=== PATIENT | female | born 1945 | race Caucasian/White ===

== ENCOUNTER 2021-07-09 09:54 | Outpatient (CLI) | payer MEDICARE, SELFPAY ==
--- NOTE | 2021-07-09 10:03 | MM_ITS ---
WS: [id number] BILATERAL SCREENING DIGITAL MAMMOGRAM WITH CAD HISTORY: SCREENING COMPARISON: 03/30/2019 03/01/2018 Bilateral CC and MLO views submitted. Computer aided detection analyzed. Breast composition: There are scattered areas of fibroglandular density. No suspicious masses, microc alcifications or architectural distortion. Vascular calcifications and scattered benign calcification s within each breast. MM/[id number] IMPRESSION: BI-RADS: 2-Benign FOLLOW UP: 1 Year Follow-up
== END 2021-07-09 09:55 | disposition home or self-care (01) ==
LOC: RADSHAW 10:01
PROVIDERS: PCP Internal Medicine; Visit Provider Internal Medicine
DX: Z12.31 Encounter for screening mammogram for malignant neoplasm of breast (principal)
CPT/HCPCS: 77067

== ENCOUNTER 2022-07-15 09:13 | Outpatient (CLI) | payer MEDICARE, SELFPAY ==
--- NOTE | 2022-07-15 09:20 | MM_ITS ---
WS: [id number] Bilateral screening 3D tomosynthesis digital mammogram, 07/15/2022 Clinical Data: SCREENING Comparison: 10/18/2021, 03/30/2019, 03/01/2018, 10/09/2016, 04/17/2015, 04/05/2014, 03/07/2013, 12/01/2011, 10/30, 11/18/2009, 11/16/2008, 11/11/2007, 11/16/2006. Findings: The breast parenchymal pattern shows fibroglandular tissue. No spiculated masses or clustered calcifi cations are seen. There are no secondary signs of carcinoma. There are scattered benign calcification s and vascular calcifications in both breasts. There are mole markers on the left breast. MM/[id number] Impression: 1. Negative bilateral mammogram unchanged. 2. Recommend annual screening mammograms. BIRADS: 1-Negative FOLLOW UP: 1 Year Follow-up The CAD return checker was used.
== END 2022-07-15 09:14 | disposition home or self-care (01) ==
PROVIDERS: PCP Internal Medicine; Visit Provider Internal Medicine
DX: Z12.31 Encounter for screening mammogram for malignant neoplasm of breast (principal)
CPT/HCPCS: 77063; 77067

== ENCOUNTER 2022-10-21 09:40 | Outpatient (CLI) | payer MEDICARE, SELFPAY ==
--- NOTE | 2022-10-21 09:53 | XRR_ITS ---
PROCEDURE INFORMATION: Exam: XR Right Ribs with PA Chest Exam date and time: 10/21/2022 9:58 AM Age: 77 years old Clinical indication: Pain and injury or trauma; Fall; Blunt trauma (contusions or hematomas); Chest wall pain; Right; Injury details: RT rib pain, upper to mid rib area, patient fell against wall 2 weeks ago; Additional info: Right rib pain TECHNIQUE: Imaging protocol: Radiologic exam of the Right ribs with PA chest. Views: 3 views COMPARISON: CT abdomen pelvis w con* [id number] 08/31/2017 3:05 PM FINDINGS: Lungs: Unremarkable. No consolidation. Pleural spaces: Unremarkable. No pleural effusion. No pneumothorax. Heart/Mediastinum: Unremarkable. No cardiomegaly. Bones/joints: Healed right-sided rib fractures are identified. However, there does appear to be an acute fracture at least of the 5th and 6th lateral right ribs. This is seen on the last oblique view. XR/XR ribs RT mn 3V w [id number] IMPRESSION: No pneumothorax with healed right rib fractures. The does appear to be in acute right 5th and right 6th rib fracture.
== END 2022-10-21 09:41 | disposition home or self-care (01) ==
PROVIDERS: PCP Internal Medicine; Visit Provider Nurse Practitioner Family
DX: R07.81 Pleurodynia (principal)
CPT/HCPCS: 71101

== ENCOUNTER → 2023-07-05 09:42 | Outpatient (BNVA) | payer MEDICARE, SELFPAY | PROVIDERS: PCP Internal Medicine; Visit Provider Internal Medicine Cardiovascular Disease | DX: I35.8 Other nonrheumatic aortic valve disorders (principal); I73.9 Peripheral vascular disease, unspecified; I10 Essential (primary) hypertension; E78.5 Hyperlipidemia, unspecified | CPT/HCPCS: 99214 ==

== ENCOUNTER 2023-07-28 11:31 | Outpatient (CLI) | payer MEDICARE, SELFPAY ==
--- NOTE | 2023-07-28 11:37 | MM_ITS ---
WS: [id number] BILATERAL SCREENING DIGITAL TOMOSYNTHESIS MAMMOGRAM WITH CAD HISTORY: SCREENING COMPARISON: 07/15/2022, 07/09/2021 and 03/30/2019 Bilateral CC and MLO views with tomosynthesis and synthetic mammography submitted. Computer aided det ection analyzed. Breast composition: There are scattered areas of fibroglandular density. No suspicious masses, microc alcifications or architectural distortion. There are benign scattered calcifications and vascular jocelyn cifications. Long-term stability 8 mm nodule in the anterior RIGHT breast with calcifications. IMPRESSION: MM/[id number] BI-RADS: 2-Benign FOLLOW UP: 1 Year Follow-up
== END 2023-07-28 11:32 | disposition home or self-care (01) ==
PROVIDERS: PCP Internal Medicine; Visit Provider Internal Medicine
DX: Z12.31 Encounter for screening mammogram for malignant neoplasm of breast (principal)
CPT/HCPCS: 77063; 77067

== ENCOUNTER → 2023-07-29 14:19 | Outpatient (BNVA) | payer MEDICARE, SELFPAY | PROVIDERS: PCP Internal Medicine; Referring Provider Internal Medicine; Visit Provider Internal Medicine | DX: E03.9 Hypothyroidism, unspecified; E04.1 Nontoxic single thyroid nodule | CPT/HCPCS: 36415; 84439; 84443; 99204 ==

== ENCOUNTER 2023-10-27 14:02 | Outpatient (CLI) | payer MEDICARE, SELFPAY ==
--- NOTE | 2023-10-27 | MR_ITS ---
WS: [id number] MRI ORBIT WITH AND WITHOUT CONTRAST. COMPARISON: No similar studies. Multiplanar, multisequence imaging is performed with and without contrast. MultiHance IV. There is significant artifact throughout the diffusion imaging from an unknown source. There are no s econdary findings for an acute infarct. Mild volume loss and atrophy throughout the brain. There are a few scattered areas of increased T2 signal from small vessel ischemic disease. No mass or abnormal signal located in the pontine tegmentum near the midline or lateral to the fourth ventricle. There is no mass or mass effect. The russ is negative. No infarcts. Cavernous portions of the 6th cranial ner ves are negative. No intracranial mass or abnormal enhancement. There are no vascular malformations. There is a small v enous angioma in the LEFT posterior occipital lobe near the tentorium. Normal appearance of the orbit s and globes. Optic nerves are symmetric. Rectus muscles are negative. IMPRESSION: 1. No abnormalities identified in the region of the 6th cranial nerve. No signal abnormalities or mas s effect. 2. Negative appearance of the orbits. 3. Mild atrophy and mild small vessel ischemic disease within the brain. No prior infarct.
== END 2023-10-27 14:03 | disposition home or self-care (01) ==
PROVIDERS: PCP Internal Medicine; Visit Provider Student in an Organized Health Care Education/Training Program
DX: H49.23 Sixth [abducent] nerve palsy, bilateral (principal); I67.89 Other cerebrovascular disease
CPT/HCPCS: 70543; 70553; A9577

== ENCOUNTER → 2023-11-15 12:46 | Outpatient (BNVA) | payer MEDICARE, SELFPAY | PROVIDERS: PCP Internal Medicine; Visit Provider Internal Medicine | DX: E07.9 Disorder of thyroid, unspecified (principal); E04.1 Nontoxic single thyroid nodule; E03.9 Hypothyroidism, unspecified; H54.7 Unspecified visual loss; R49.0 Dysphonia; Z79.890 Hormone replacement therapy | CPT/HCPCS: 36415; 84439; 84443; 99214 ==

== ENCOUNTER 2023-11-17 09:38 | Outpatient (CLI) | payer MEDICARE, SELFPAY ==
--- NOTE | 2023-11-17 10:00 | US_ITS ---
WS: [id number] THYROID ULTRASOUND HISTORY: Hypothyroidism COMPARISON: 04/29/2023 Right lobe: 2.1 cm x 2.3 cm x 4.4 cm (w x ap x l). Volume: 11.2 cm3. Enlarged heterogeneous gland with a few small cystic nodules throughout. There is mild increased vasc ularity but not quite as significant as on the prior study. There are no discrete masses or echogenic foci. Left lobe: 2.0 cm x 2.0 cm x 5.2 cm (w x ap x l). Volume: 10.6 cm3. Mildly enlarged thyroid. There are a few small scattered cystic areas and very mild increased vascula rity. No mass or heterogeneity noted within the RIGHT thyroid as previously described. Isthmus: 1.0 cm. IMPRESSION: 1. Moderately enlarged thyroid with increased vascularity and a few small nodules. 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 2. Vascularity is slightly decreased as compared to the prior study. 3. No suspicious nodules are identified today.
== END 2023-11-17 09:39 | disposition home or self-care (01) ==
LOC: RAD 09:38
PROVIDERS: PCP Internal Medicine; Visit Provider Internal Medicine
DX: E03.9 Hypothyroidism, unspecified (principal)
CPT/HCPCS: 76536

== ENCOUNTER → 2024-01-17 10:13 | Outpatient (BNVA) | payer MEDICARE, SELFPAY | PROVIDERS: PCP Internal Medicine; Visit Provider Internal Medicine | DX: E07.9 Disorder of thyroid, unspecified (principal); E03.9 Hypothyroidism, unspecified; E04.1 Nontoxic single thyroid nodule; H54.7 Unspecified visual loss; Z79.890 Hormone replacement therapy | CPT/HCPCS: 36415; 84439; 84443; 99213; 99214 ==

== ENCOUNTER 2024-07-11 09:22 | Outpatient (CLI) | payer MEDICARE, SELFPAY ==
[2024-07-11 10:06] LABS: Free T4 Free Thyroxine 1.56 ng/dL (0.82-1.77)
== END 2024-07-11 09:23 | disposition home or self-care (01) ==
PROVIDERS: PCP Internal Medicine; Visit Provider Internal Medicine
DX: E07.9 Disorder of thyroid, unspecified (principal)
CPT/HCPCS: 36415; 84439; 84443

== ENCOUNTER → 2024-07-17 09:42 | Outpatient (BNVA) | payer MEDICARE, SELFPAY | PROVIDERS: PCP Internal Medicine; Visit Provider Internal Medicine | DX: E07.9 Disorder of thyroid, unspecified (principal); E03.9 Hypothyroidism, unspecified; E04.1 Nontoxic single thyroid nodule; H54.7 Unspecified visual loss; R68.2 Dry mouth, unspecified; Z79.890 Hormone replacement therapy | CPT/HCPCS: 99214 ==

== ENCOUNTER 2024-08-18 11:37 | Outpatient (CLI) | payer MEDICARE, SELFPAY ==
--- NOTE | 2024-08-18 11:44 | MM_ITS ---
WS: [id number] Bilateral screening 3D tomosynthesis digital mammogram, 08/18/2024 12:03 PM Clinical Data: SCREENING Comparison: 07/28/2023, 07/15/2022, 07/09/2021, 03/30/2019, 03/01/2018, 10/09/2016, 04/17/2015, 04/05/2014, 03/07, 12/01/2011, 11/19/2010, 11/18/2009, 11/16/2008, 11/11/2007, 11/16/2006. Findings: No spiculated masses or clustered calcifications are seen. There are no secondary signs of carcinoma . There are scattered benign calcifications throughout both breasts. There are there are vascular calci fications in both breasts, more on the right. MM/MM scr [place] tomosynthesis [id number] Impression: Negative bilateral mammogram unchanged. Recommend annual screening mammograms. BIRADS: 1 - Negative. FOLLOW UP: 1 Year Follow-up DENSITY: The breasts are almost entirely fatty. The CAD jukebox checker was used
== END 2024-08-18 11:38 | disposition home or self-care (01) ==
LOC: RAD 11:37
PROVIDERS: PCP Internal Medicine; Visit Provider Internal Medicine
DX: Z12.31 Encounter for screening mammogram for malignant neoplasm of breast (principal); R92.1 Mammographic calcification found on diagnostic imaging of breast
CPT/HCPCS: 77063; 77067

== ENCOUNTER → 2025-01-08 13:06 | Outpatient (BNVA) | payer MEDICARE, SELFPAY | PROVIDERS: PCP Internal Medicine; Visit Provider Internal Medicine Cardiovascular Disease | DX: I35.8 Other nonrheumatic aortic valve disorders (principal); I73.9 Peripheral vascular disease, unspecified; I10 Essential (primary) hypertension; E78.5 Hyperlipidemia, unspecified | CPT/HCPCS: 99214 ==

== ENCOUNTER → 2025-01-31 08:19 | Outpatient (BNVA) | payer MEDICARE, SELFPAY | PROVIDERS: PCP Internal Medicine; Visit Provider Internal Medicine | DX: E07.9 Disorder of thyroid, unspecified (principal); E03.9 Hypothyroidism, unspecified; E04.1 Nontoxic single thyroid nodule; H54.7 Unspecified visual loss; R68.2 Dry mouth, unspecified | CPT/HCPCS: 36415; 84439; 84443; 99214 ==

== ENCOUNTER → 2025-04-04 10:19 | Outpatient (BNVA) | payer MEDICARE, SELFPAY | PROVIDERS: PCP Internal Medicine; Visit Provider Internal Medicine | DX: E07.9 Disorder of thyroid, unspecified (principal) | CPT/HCPCS: 36415; 84439; 84443 ==

== ENCOUNTER → 2025-07-23 11:07 | Outpatient (BNVA) | payer MEDICARE, SELFPAY | PROVIDERS: PCP Family Medicine; Visit Provider Internal Medicine Cardiovascular Disease | DX: I35.8 Other nonrheumatic aortic valve disorders (principal); I73.9 Peripheral vascular disease, unspecified; I10 Essential (primary) hypertension; E78.5 Hyperlipidemia, unspecified; Z87.891 Personal history of nicotine dependence; R07.9 Chest pain, unspecified; R06.09 Other forms of dyspnea | CPT/HCPCS: 93005; 99214 ==

== ENCOUNTER 2025-08-23 08:15 | Outpatient (CLI) | payer MEDICARE, SELFPAY ==
--- NOTE | 2025-08-23 08:30 | USCV_ITS ---
[employer] Age: 80 Gender: F : 1945 Exam Date: 08/23/2025 08:34 Ordering Phys: Shon Cheema MD ([email or web address]) Technologist: JHOAN Exam Location: [facility] – [place] Indication: Aortic Valve Stenosis BP: 152 / 76 HR: 85 Rhythm: Sinus Technical Quality: Adequate MEASUREMENTS (Male / Female) Normal Values 2D ECHO LV Diastolic Diameter PLAX 5.0 cm 4.2 - 5.9 / 3.9 - 5.3 cm IVS Diastolic Thickness 1.0 cm 0.6 - 1.0 / 0.6 - 0.9 cm IVS Systolic Thickness 1.5 cm LVPW Systolic Thickness 1.8 cm LVOT Diameter 1.9 cm LV Ejection Fraction 2D Teich 57.2 % LV Ejection Fraction MOD 4C 56.6 % LV Ejection Fraction MOD 2C 59.5 % LV Ejection Fraction 2C AL 62.7 % LA Diameter 3.6 cm RA Systolic Volume 4C AL 34.6 ml RA Systolic Volume 4C MOD 33.2 ml LA Sys Volume AL 44.9 cm cubed LA Sys Volume Index AL 22.1 cm cubed/m squared Aorta at Sinotubular Diameter 2.5 cm IVC Diameter 1.5 cm M-MODE LA Ao Ratio MM 1.7 AV Cusp Separation MM 1.2 cm DOPPLER AV Peak Velocity 134.0 cm/s LVOT Peak Velocity 132.0 cm/s AV Area Cont Eq vti 3.0 cm squared AV Area Cont Eq pk 2.8 cm squared MV Peak Velocity 166.0 cm/s MV Area PHT 3.9 cm squared Mitral E to A Ratio 0.8 TR Peak Velocity 127.0 cm/s TR Peak Gradient 6.5 mmHg TV Peak E Velocity 72.0 cm/s PV Peak Velocity 95.0 cm/s FINDINGS Left Ventricle Normal left ventricular size, systolic function and wall thickness, with no regional wall motion abnormalities. Left ventricular ejection fraction is 60%. Indetermindate left ventricular diastolic dysfunction due to severe mitral annular calcification. Right Ventricle Normal right ventricular size and systolic function. Normal right ventricular systolic pressure. Right Atrium Normal right atrial size. Left Atrium Normal left atrial size. Mitral Valve Severe mitral annular calcification. No mitral valve regurgitation. Mild mitral valve stenosis, mean PG 4 mmHg at heart rate of 85 bpm. Aortic Valve Aortic valve not well visualized. Mild aortic valve calcification. No aortic valve stenosis. No aortic valve regurgitation. Tricuspid Valve Trace tricuspid valve regurgitation. No tricuspid valve stenosis. Pulmonic Valve No pulmonary valve stenosis. No pulmonary valve regurgitation. Pericardium No pericardial effusion. Aorta Normal size aortic root and proximal ascending aorta. IVC Normal inferior vena cava. CONCLUSIONS 1. Normal biventricular size and systolic function. Left ventricular EF 60%. 2. Aortic valve sclerosis without stenosis. 3. Severe mitral annular calcification with mild mitral stenosis. No mitral valve regurgitation. Feng Goyal MD, FACC (Electronically Signed) Final Date: 26 August 2025 17:21 S
== END 2025-08-23 08:16 | disposition home or self-care (01) ==
LOC: RAD 08:16
PROVIDERS: PCP Family Medicine; Visit Provider Internal Medicine Cardiovascular Disease
DX: R06.09 Other forms of dyspnea (principal)
CPT/HCPCS: 93306

== ENCOUNTER 2025-09-13 07:48 | Outpatient (CLI) | payer MEDICARE, SELFPAY ==
--- NOTE | 2025-09-13 | MM_ITS ---
WS: [id number] BILATERAL SCREENING DIGITAL TOMOSYNTHESIS MAMMOGRAM WITH CAD HISTORY: ANNUAL SCREENING COMPARISON: 08/18/2024, 07/28/2023, 03/30/2019 Bilateral CC and MLO views with tomosynthesis and synthetic mammography submitted. Computer aided detection analyzed. Breast composition: There are scattered areas of fibroglandular density. No suspicious masses, microcalcifications or architectural distortion. Numerous calcifications in each breast. Bilateral arterial breast calcifications. 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 MM/MM scr tomosynthesis [id number] IMPRESSION: BI-RADS: 2 - Benign. FOLLOW UP: 1 Year Follow-up
== END 2025-09-13 07:49 | disposition home or self-care (01) ==
LOC: RAD 07:50
PROVIDERS: PCP Family Medicine; Visit Provider Family Medicine
DX: Z12.31 Encounter for screening mammogram for malignant neoplasm of breast (principal); R92.323 Mammographic fibroglandular density, bilateral breasts; R92.1 Mammographic calcification found on diagnostic imaging of breast
CPT/HCPCS: 77063; 77067

== ENCOUNTER → 2025-09-24 13:19 | Outpatient (BNVA) | payer MEDICARE, SELFPAY | PROVIDERS: PCP Family Medicine; Visit Provider Internal Medicine Endocrinology, Diabetes & Metabolism | DX: E07.9 Disorder of thyroid, unspecified (principal); E03.9 Hypothyroidism, unspecified; E04.1 Nontoxic single thyroid nodule; H54.7 Unspecified visual loss; R68.2 Dry mouth, unspecified | CPT/HCPCS: 99214 ==

== ENCOUNTER 2025-10-05 08:43 | Outpatient (CLI) | payer MEDICARE, SELFPAY ==
[2025-10-05 10:06] LABS: Hematocrit 38.4 % (36-47); Hemoglobin 12.50 g/dL (11.27-16.99); Mean Corpuscular HGB Conc 32.6 g/dL (30-55); Mean Corpuscular Hemoglobin 28.2 pg (27-33); Mean Corpuscular Volume 86.5 fl (85-98); Nucleated Red Blood Cells % 0 %; Platelet Count 293 10^3/cmm (157-399); Red Blood Count 4.44 10^6/uL (3.85-5.65); White Blood Count 8.39 10^3/uL (3.29-11.43)
[2025-10-05 10:42] LABS: Alanine Aminotransferase 12 U/L (0-33); Albumin Level 4.6 g/dL (3.5-5.2); Alkaline Phosphatase 93 U/L (35-105); Anion Gap 16.0 (5-19); Aspartate Amino Transferase 17 U/L (0-32); Blood Urea Nitrogen 13 mg/dL (8-23); Calcium 9.5 mg/dL (8.5-10.5); Carbon Dioxide 26 mmol/L (22-29); Chloride 101 mmol/L (98-107); Free T4 Free Thyroxine 1.49 ng/dL (0.82-1.77); Globulin 2.7 g/dL (1.3-4.6); Glucose 100 mg/dL (65-115); Osmolality Calculated 288 mOsm/kg (285-295); Potassium 4.0 mmol/L (3.5-5.1); Sodium 139 mmol/L (136-145); Thyroid Stimulating Hormone 3.66 uIU/mL (0.27-4.20); Total Protein 7.3 g/dL (6.6-8.7)
== END 2025-10-05 08:44 | disposition home or self-care (01) ==
PROVIDERS: Internal Medicine Endocrinology, Diabetes & Metabolism; PCP Family Medicine; Visit Provider Internal Medicine
DX: E03.9 Hypothyroidism, unspecified (principal); E04.1 Nontoxic single thyroid nodule; H54.7 Unspecified visual loss; R68.2 Dry mouth, unspecified; E07.9 Disorder of thyroid, unspecified
CPT/HCPCS: 36415; 80053; 82533; 84439; 84443; 85025